=== PATIENT | male | born 1995 | race African-American/Black ===

== ENCOUNTER 2022-01-27 10:09 | Emergency (ER) | payer SELFPAY ==
[~2022-01-27] VITALS: Ht 182.9 cm; Wt 95.0 kg
[2022-01-27 10:31] VITALS: BP 128/81
[2022-01-27] MEDS ORDERED: CARB-274 EACH EAR (10:36)
== END 2022-01-27 11:29 | disposition home or self-care (01) ==
LOC: ER 10:09
DX: H61.21 Impacted cerumen, right ear (principal)
CPT/HCPCS: 99282